=== PATIENT | male | born 1985 | race Caucasian/White ===

== ENCOUNTER 2021-09-20 04:50 | Emergency (ER) | payer SELFPAY ==
[~2021-09-20] VITALS: Ht 190 cm; Wt 97.0 kg
[2021-09-20 05:01] VITALS: BP 179/104
--- NOTE | 2021-09-20 05:20 | ED Integumentary General ---
General Chief Complaint: Skin/Wound Problems Stated Complaint: LEFT LEG INJURY Nursing Triage Note: Pt reports he was attempting to go to the bathroom and fell onto his left BKA causing it to bleed. Pt had a procedure done 2020 and has a wound vac and noticed bleeding to area. Pt reports he "did a line" and drank ETOH tonight. Denies LOC or other injury. Pt appears to be anxious but is cooperative at this time. Source: patient Exam Limitations: no limitations History of Present Illness Date Seen by Provider: Sep 20, 2021 Time Seen by Provider: 05:16 Initial Comments Patient fell 2 hours prior to arrival injuring his left below the knee stump with minimal bleeding present under wound VAC region. Patient scared to reconnect wound VAC. Patient also drinking alcohol and doing cocaine earlier this evening. Timing/Duration: just prior to arrival Severity: mild Location: extremities Possible Cause: other Modifying Factors: improves with other Associated Symptoms: other Allergies and Home Medications Patient Home Medication List Home Medication List Reviewed: Yes Review of Systems Review of Systems Constitutional: see HPI Past Wffwxop-Tppfzo-Orsyrm Hx Patient Social History Tobacco Use?: Yes Tobacco type used: Cigarettes Smoking Status: Current Everyday Smoker Use of E-Cig and/or Vaping dev: No Substance use?: Yes Substance type: Other Additional substance use comme: Cocaine Substance frequency: Several times a month Alcohol Use?: Yes Pt feels they are or have been: No Immunizations Up To Date Influenza Vaccine Up-to-Date: No; Not Current First/Initial COVID19 Vaccinat: denies Physical Exam Vital Signs Vital Signs - First Documented 09/20/21 05:01 Temp 36.7 Pulse 143 Resp 18 B/P (MAP) 179/104 (129) Pulse Ox 98 O2 Delivery Room Air Capillary Refill : Less Than 3 Seconds General Appearance: other (Anxious) Extremities: other (Minimal blood noted under wound VAC site. No deformity of DKA) Neurologic/Psychiatric: no motor/sensory deficits, alert Progress/Results/Core Measures Results/Orders Vital Signs/I&O 09/20/21 05:01 Temp 36.7 Pulse 143 Resp 18 B/P (MAP) 179/104 (129) Pulse Ox 98 O2 Delivery Room Air Blood Pressure Mean: 129 Departure Communication (Admissions) Patient instructed not to reconnect wound VAC until he can follow-up with his wound care nurse on Wednesday. Impression Primary Impression: Extremity amputee Additional Impression: Abrasion Disposition: HOME, SELF-CARE Condition: Stable Departure-Patient Inst. Decision time for Depature: 05:20 Referrals: NO,LOCAL PHYSICIAN (PCP/Family) Primary Care Physician Patient Instructions: Skin Abrasions (DC) Add. Discharge Instructions: Do not reconnect wound VAC until you follow-up with your wound care team on Wednesday. Avoid alcohol and drug use. All discharge instructions reviewed with patient and/or family. Voiced understanding. KAILEY DAVILA DO Sep 20, 2021 05:20
== END 2021-09-20 05:30 | disposition home or self-care (01) ==
LOC: ER FS 05:05
DX: Z89.432 Acquired absence of left foot (principal); F17.210 Nicotine dependence, cigarettes, uncomplicated
CPT/HCPCS: 99281

== ENCOUNTER 2021-10-31 17:31 | Emergency (ER) | payer SELFPAY ==
[~2021-10-31] VITALS: Ht 188 cm; Wt 86.2 kg
[2021-10-31 17:45] VITALS: BP 133/84
[2021-10-31] MEDS ORDERED: DOXYCYCLINE 100 MG (VIBRAMYCIN) TABLET PO SCH (19:00)
--- NOTE | 2021-10-31 19:08 | ED Lower Extremity ---
General Chief Complaint: Post OP Complications/Pain Stated Complaint: LEG PAIN Nursing Triage Note: PT TO ROOM FT02 WITH C/O LEFT LEG PAIN. PT IS A LEFT BTK AMPUTEE. PT REPORTS HAVING A REVISION X37 DAYS AGO DONE ON THE AMPUTATION AND HAS BEEN UNABLE TO GET A FOLLOW UP APPT BECAUSE OF INSURANCE. Source: patient Exam Limitations: no limitations (SAUL US APRN) History of Present Illness Date Seen by Provider: Oct 31, 2021 Time Seen by Provider: 19:02 Initial Comments To ER by private vehicle with reports of left lower extremity stump infection c oncerns. He had a left lower extremity amputation in [place] 6 years ago. He had a revision at [facility] 37 days ago. He denies any fevers or chills. The sutures remain in place and there is some redness around the incision. Onset: this evening Severity: moderate Pain/Injury Location: left leg Method of Injury: unknown Modifying Factors: Worse With Movement (SAUL US APRN) Allergies and Home Medications Allergies Coded Allergies: No Known Drug Allergies (Unverified , 10/31/21) Patient Home Medication List Home Medication List Reviewed: Yes (SAUL US APRN) Doxycycline Hyclate (Doxycycline Hyclate) 100 Mg Tablet, 100 MG PO BID Prescribed by: SAUL US on 10/31/211935 Hydrocodone/Acetaminophen (Hydrocodone-Acetamin 5-325 mg) 1 Each Tablet, 1 TAB PO Q4H PRN for PAIN-MODERATE (5-7) Prescribed by: SAUL US on 10/31/211936 Review of Systems Constitutional: see HPI EENTM: see HPI Respiratory: no symptoms reported Cardiovascular: no symptoms reported Genitourinary: no symptoms reported Musculoskeletal: see HPI Skin: no symptoms reported Psychiatric/Neurological: No Symptoms Reported (SAUL US APRN) Past Dticghl-Vjocgw-Zhhgjm Hx Patient Social History Tobacco Use?: Yes Tobacco type used: Cigarettes Smoking Status: Current Everyday Smoker Smokeless Tobacco Frequency: Never a User Use of E-Cig and/or Vaping dev: No Use of E-Cig and/or Vaping Larry: Never a User Substance use?: Yes Substance type: Marijuana Alcohol Use?: No Alcohol Frequency: Daily Pt feels they are or have been: No (SAUL US APRN) Immunizations Up To Date First/Initial COVID19 Vaccinat: denies (SAUL US APRN) Physical Exam Vital Signs Vital Signs - First Documented 10/31/21 17:45 Temp 36.2 Pulse 87 Resp 18 B/P (MAP) 133/84 (100) O2 Delivery Room Air (TIARA GROVER MD) Vital Signs Capillary Refill : Less Than 3 Seconds (SAUL US APRN) Height, Weight, BMI Height: '" Weight: lbs. oz. kg; 24.00 BMI Method: General Appearance: WD/WN, no apparent distress HEENT: PERRL/EOMI, normal ENT inspection Neck: non-tender, full range of motion Respiratory: no respiratory distress, no accessory muscle use Hips: bilateral hip non-tender, bilateral hip normal inspection, bilateral hip normal range of motion Legs: bilateral leg non-tender, bilateral leg normal inspection, bilateral leg normal range of motion; left leg other (Low the knee stump has some incisional redness without drainage. The inferior aspect of the stump does not have erythema there is no cellulitis. We will remove his sutures since it has been 37 days per his report and based on clinical exam it would be consistent as the incision has mostly healed except for 1 small area.) Knees: bilateral knee non-tender, bilateral knee normal inspection, bilateral knee normal range of motion Ankles: right ankle non-tender, right ankle normal inspection, right ankle normal range of motion Feet: right foot non-tender, right foot normal inspection, right foot normal range of motion Neurologic/Psychiatric: alert, normal mood/affect, oriented x 3 Skin: normal color, warm/dry (SAUL US APRN) Progress/Results/Core Measures Results/Orders Lab Results Laboratory Tests Test 10/31/21 19:18 Range/Units White Blood Count 11.0 4.3-11.0 10^3/uL Red Blood Count 5.25 4.30-5.52 10^6/uL Hemoglobin 15.6 13.3-17.7 g/dL Hematocrit 47 40-54 % Mean Corpuscular Volume 89 80-99 fL Mean Corpuscular Hemoglobin 30 25-34 pg Mean Corpuscular Hemoglobin Concent 34 32-36 g/dL Red Cell Distribution Width 12.6 10.0-14.5 % Platelet Count 315 130-400 10^3/uL Mean Platelet Volume 10.0 9.0-12.2 fL Immature Granulocyte % (Auto) 0 % Neutrophils (%) (Auto) 73 42-75 % Lymphocytes (%) (Auto) 16 12-44 % Monocytes (%) (Auto) 7 0-12 % Eosinophils (%) (Auto) 2 0-10 % Basophils (%) (Auto) 1 0-10 % Neutrophils # (Auto) 8.1 H 1.8-7.8 10^3/uL Lymphocytes # (Auto) 1.8 1.0-4.0 10^3/uL Monocytes # (Auto) 0.8 0.0-1.0 10^3/uL Eosinophils # (Auto) 0.2 0.0-0.3 10^3/uL Basophils # (Auto) 0.1 0.0-0.1 10^3/uL Immature Granulocyte # (Auto) 0.0 0.0-0.1 10^3/uL Erythrocyte Sedimentation Rate 11 0-15 MM/HR Sodium Level 139 135-145 MMOL/L Potassium Level 4.1 3.6-5.0 MMOL/L Chloride Level 105 98-107 MMOL/L Carbon Dioxide Level 22 21-32 MMOL/L Anion Gap 12 5-14 MMOL/L Blood Urea Nitrogen 9 7-18 MG/DL Creatinine 0.83 0.60-1.30 MG/DL Estimat Glomerular Filtration Rate 117 BUN/Creatinine Ratio 11 Glucose Level 114 H 70-105 MG/DL Calcium Level 9.4 8.5-10.1 MG/DL (TIARA GROVER MD) Vital Signs/I&O 10/31/21 17:45 Temp 36.2 Pulse 87 Resp 18 B/P (MAP) 133/84 (100) O2 Delivery Room Air (TIARA GROVER MD) Blood Pressure Mean: 100 Departure Communication (Admissions) 1933-incision was cleaned with Betadine, sutures were removed, area was scrubbed with chlorhexidine/saline solution. Culture was collected from an area of a small amount of wound dehiscence. This was then covered with antibiotic oin tment gauze and Coban. (SAUL US APRN) Impression Primary Impression: Soft tissue infection Additional Impressions: Encounter for wound care Extremity amputee Disposition: 01 HOME, SELF-CARE Condition: Stable Departure-Patient Inst. Decision time for Depature: :34 (SAUL US APRN) Referrals: NO,LOCAL PHYSICIAN (PCP/Family) Primary Care Physician Patient Instructions: Wound Care (DC) Add. Discharge Instructions: 1. Change dressing daily for about a week or so. Take the antibiotics and pain medication as directed. You can shower starting tomorrow. Do not put any weight or stress on this stump for another few weeks. Scripts Hydrocodone/Acetaminophen (Hydrocodone-Acetamin 5-325 mg) 1 Each Tablet 1 TAB PO Q4H PRN for PAIN-MODERATE (5-7), #10 TAB Prov: SAUL US APRN 10/31/21 Doxycycline Hyclate (Doxycycline Hyclate) 100 Mg Tablet 100 MG PO BID, #14 TAB 0 Refills Prov: SAUL US APRN 10/31/21 ATTENDING PHYSICIAN NOTE: I was physically present as attending physician in the emergency department during the care of this patient, but I was not directly involved in the decision making or delivery of care for this patient. (TIARA GROVER MD) SAUL US APRN Oct 31, 2021 19:08 TIARA GROVER MD Nov 01, 2021 08:21
[2021-10-31 19:25] LABS: BASOPHILS # (AUTO) 0.1 10^3/uL (0.0-0.1); BASOPHILS % (AUTO) 1 % (0-10); EOSINOPHILS # (AUTO) 0.2 10^3/uL (0.0-0.3); EOSINOPHILS % (AUTO) 2 % (0-10); HEMATOCRIT 47 % (40-54); HEMOGLOBIN 15.6 g/dL (13.3-17.7); LYMPHOCYTES # (AUTO) 1.8 10^3/uL (1.0-4.0); LYMPHOCYTES % (AUTO) 16 % (12-44); MEAN CORPUSCULAR HEMOGLOBIN 30 pg (25-34); MEAN CORPUSCULAR HGB CONC 34 g/dL (32-36); MEAN CORPUSCULAR VOLUME 89 fL (80-99); MONOCYTES # (AUTO) 0.8 10^3/uL (0.0-1.0); MONOCYTES % (AUTO) 7 % (0-12); NEUTROPHILS # (AUTO) 8.1 10^3/uL (1.8-7.8); NEUTROPHILS % (AUTO) 73 % (42-75); PLATELET COUNT 315 10^3/uL (130-400)
[2021-10-31] MEDS ORDERED: DOXY100T2 PO (19:36)
[2021-10-31] MEDS ORDERED: ACHD5005 PO (19:36)
[2021-10-31 19:45] LABS: CALCIUM 9.4 MG/DL (8.5-10.1); CREATININE SERUM 0.83 MG/DL (0.60-1.30); POTASSIUM 4.1 MMOL/L (3.6-5.0)
[2021-10-31 20:34] LABS: ERYTHROCYTE SEDIMENTATION RATE 11 MM/HR (0-15)
== END 2021-10-31 19:55 | disposition home or self-care (01) ==
LOC: EDUNIT# 17:31 → ER 17:34
DX: M79.89 Other specified soft tissue disorders (principal); F17.210 Nicotine dependence, cigarettes, uncomplicated; Z48.00 Encounter for change or removal of nonsurgical wound dressing; Z89.512 Acquired absence of left leg below knee
CPT/HCPCS: 36415; 80048; 85025; 85652; 87070; 87077; 87186; 87205

== ENCOUNTER 2022-01-28 00:37 | Emergency (ER) | payer SELFPAY ==
[~2022-01-28] VITALS: Ht 190.5 cm; Wt 90.0 kg
[~2022-01-28 00:37] MED LIST: ACHD5005 PO; DOXY100T2 PO
[2022-01-28] MEDS ORDERED: ORPHENADRINE 60 MG/2 ML (NORFLEX) AMP (ED ONLY) IM STA (00:55)
[2022-01-28] MEDS ORDERED: KETOROLAC 60 MG/2 ML VIAL IM STA (00:55)
--- NOTE | 2022-01-28 01:03 | ED Psychosocial ---
General Chief Complaint: Psych/Social Disorder Stated Complaint: BACK PAIN Source: patient (ARCHANA ABRAHAM MD) History of Present Illness Date Seen by Provider: January 28, 2022 Time Seen by Provider: 00:39 Initial Comments 36-year-old male presenting with complaints of low back pain radiating to both hips and legs. He states this is been present for 2 days since he fell out of his wheelchair. He denies hitting anything with his back. He does have a history of methamphetamine abuse and alcohol abuse. He states that he has been 2 days since he last used any drugs or alcohol. He has not taken anything for his back pain. He denies losing any control of his bowel or bladder. He has an amputation of the left lower extremity from just below his knee. He states that the initial amputation was done in 2016 in [place]. He had a revision done earlier this year at [facility]. He reports that he is waiting for the clinic to help find him a rehab facility to detox from alcohol and methamphetamines. After telling him that we will check his back out and get him something for pain he became tearful again and said he was scared to go home. When asked why he was scared to go home he said it was because he was planning to kill himself by going on a fishing trip and drown himself in the water. He states he has tried to drown himself previously but denies admit to psychiatric facility in the past Severity: severe Associated Symptoms: anxiety, suicidal ideation (ARCHANA ABRAHAM MD) Allergies and Home Medications Allergies Coded Allergies: mirtazapine (Verified Adverse Reaction, Mild, Nightmares, 01/28/22) Patient Home Medication List Home Medication List Reviewed: Yes (ARCHANA ABRAHAM MD) Doxycycline Hyclate (Doxycycline Hyclate) 100 Mg Tablet, 100 MG PO BID Prescribed by: SAUL US on 10/31/211935 Hydrocodone/Acetaminophen (Hydrocodone-Acetamin 5-325 mg) 1 Each Tablet, 1 TAB PO Q4H PRN for PAIN-MODERATE (5-7) Prescribed by: SAUL US on 10/31/211936 Review of Systems Constitutional: No chills, No fever EENTM: no symptoms reported Respiratory: no symptoms reported Cardiovascular: no symptoms reported Gastrointestinal: no symptoms reported Genitourinary: no symptoms reported Musculoskeletal: see HPI, back pain Skin: no symptoms reported Psychiatric/Neurological: Anxiety, Depressed, Emotional Problems (States he feels suicidal and plans to go fishing by himself and drown himself) (ARCHANA ABRAHAM MD) Past Gikjkyl-Grguve-Otiqpt Hx Patient Social History Tobacco Use?: Yes Tobacco type used: Cigarettes Smoking Status: Current Everyday Smoker Substance use?: Yes Substance type: Methamphetamine Alcohol Use?: Yes (ARCHANA ABRAHAM MD) Immunizations Up To Date First/Initial COVID19 Vaccinat: denies (ARCHANA ABRAHAM MD) Past Medical History Surgery/Hospitalization HX: Left below the knee amputation in [place] 2015, revision [address] [facility], Polysubstance abuse, Methamphetamine Abuse, Alcohol abuse, Suicidal Ideation (ARCHANA ABRAHAM MD) Surgeries: Yes Amputation (Left BKA), Gallbladder Respiratory: No Cardiac: Yes Hypertension Neurological: No Genitourinary: No Gastrointestinal: No Musculoskeletal: Yes (Osteomyelitis of left leg requiring amputation) Amputee Endocrine: No HEENT: No Cancer: No Psychosocial: Yes Anxiety, Bipolar, Depression (TIARA HILTON MD) Physical Exam Vital Signs - First Documented 01/28/22 00:38 Temp 36.8 Pulse 87 Resp 17 B/P (MAP) 153/97 (115) Pulse Ox 98 O2 Delivery Room Air (TIARA HILTON MD) Capillary Refill : (ARCHANA ABRAHAM MD) Height, Weight, BMI Height: '" Weight: lbs. oz. kg; 24.00 BMI Method: General Appearance: mild distress (tearful at times) HEENT: PERRL/EOMI, pharynx normal Neck: non-tender, full range of motion, supple, normal inspection Respiratory: chest non-tender, lungs clear, normal breath sounds, no respiratory distress, no accessory muscle use Cardiovascular: normal peripheral pulses, regular rate, rhythm Gastrointestinal: normal bowel sounds, non tender, soft, no pulsatile mass Extremities: normal range of motion, non-tender, no calf tenderness, normal capillary refill Neurologic/Psychiatric: ballistics expert II-XII nml as tested, alert, oriented x 3, other (anxious and tearful) Appearance/Memory: disheveled Behavior/Eye Contact: cooperative, avoids eye contact, increased rate of speech Thoughts/Hallucinations: no apparent hallucination, other (suicidal thoughts of drowning himself) Skin: normal color, warm/dry (ARCHANA ABRAHAM MD) Progress/Results/Core Measures Results/Orders Lab Results Laboratory Tests Test 01/28/22 00:42 01/28/22 01:15 01/28/22 01:30 Range/Units Urine Color YELLOW Urine Clarity CLEAR Urine pH 7.0 5-9 [address] Specific [place] 1.010 L 1.016-1.022 Urine Protein NEGATIVE NEGATIVE Urine Glucose (UA) NEGATIVE NEGATIVE Urine Ketones NEGATIVE NEGATIVE Urine Nitrite NEGATIVE NEGATIVE Urine Bilirubin NEGATIVE NEGATIVE Urine Urobilinogen 0.2 < = 1.0 MG/DL Urine Leukocyte Esterase NEGATIVE NEGATIVE Urine RBC (Auto) NEGATIVE NEGATIVE Urine RBC RARE /HPF Urine WBC 0-2 /HPF Urine Squamous Epithelial Cells RARE /HPF Urine Renal Epithelial Cells RARE /HPF Urine Crystals NONE /LPF Urine Bacteria NEGATIVE /HPF Urine Casts NONE /LPF Urine Mucus NEGATIVE /LPF Urine Culture Indicated NO Urine Opiates Screen NEGATIVE NEGATIVE Urine Oxycodone Screen NEGATIVE NEGATIVE Urine Methadone Screen NEGATIVE NEGATIVE Urine Propoxyphene Screen NEGATIVE NEGATIVE Urine Barbiturates Screen NEGATIVE NEGATIVE Ur Tricyclic Antidepressants Screen NEGATIVE NEGATIVE Urine Phencyclidine Screen NEGATIVE NEGATIVE Urine Amphetamines Screen POSITIVE H NEGATIVE Urine Methamphetamines Screen POSITIVE H NEGATIVE Urine Benzodiazepines Screen NEGATIVE NEGATIVE Urine Cocaine Screen NEGATIVE NEGATIVE Urine Cannabinoids Screen NEGATIVE NEGATIVE White Blood Count 8.1 4.3-11.0 10^3/uL Red Blood Count 5.49 4.30-5.52 10^6/uL Hemoglobin 15.8 13.3-17.7 g/dL Hematocrit 47 40-54 % Mean Corpuscular Volume 86 80-99 fL Mean Corpuscular Hemoglobin 29 25-34 pg Mean Corpuscular Hemoglobin Concent 34 32-36 g/dL Red Cell Distribution Width 12.8 10.0-14.5 % Platelet Count 260 130-400 10^3/uL Mean Platelet Volume 10.7 9.0-12.2 fL Immature Granulocyte % (Auto) 1 % Neutrophils (%) (Auto) 54 42-75 % Lymphocytes (%) (Auto) 26 12-44 % Monocytes (%) (Auto) 12 0-12 % Eosinophils (%) (Auto) 7 0-10 % Basophils (%) (Auto) 1 0-10 % Neutrophils # (Auto) 4.4 1.8-7.8 10^3/uL Lymphocytes # (Auto) 2.1 1.0-4.0 10^3/uL Monocytes # (Auto) 1.0 0.0-1.0 10^3/uL Eosinophils # (Auto) 0.6 H 0.0-0.3 10^3/uL Basophils # (Auto) 0.1 0.0-0.1 10^3/uL Immature Granulocyte # (Auto) 0.0 0.0-0.1 10^3/uL Sodium Level 139 135-145 MMOL/L Potassium Level 4.3 3.6-5.0 MMOL/L Chloride Level 102 98-107 MMOL/L Carbon Dioxide Level 24 21-32 MMOL/L Anion Gap 13 5-14 MMOL/L Blood Urea Nitrogen 13 7-18 MG/DL Creatinine 0.83 0.60-1.30 MG/DL Estimat Glomerular Filtration Rate 117 BUN/Creatinine Ratio 16 Glucose Level 108 H 70-105 MG/DL Calcium Level 9.0 8.5-10.1 MG/DL Corrected Calcium 8.8 8.5-10.1 MG/DL Total Bilirubin 0.2 0.1-1.0 MG/DL Aspartate Amino Transf (AST/SGOT) 130 H 5-34 U/L Alanine Aminotransferase (ALT/SGPT) 233 H 0-55 U/L Alkaline Phosphatase 218 H 40-136 U/L Total Protein 7.2 6.4-8.2 GM/DL Albumin 4.2 3.2-4.5 GM/DL Salicylates Level < 0.3 L 5.0-20.0 MG/DL Acetaminophen Level < 10 L 10-30 UG/ML Serum Alcohol < 10 <10 MG/DL SARS-CoV-2 RNA (RT-PCR) Not Detected Not Detecte (TIARA HILTON MD) My Orders Orders - TIARA HILTON MD Ibuprofen Tablet (Motrin Tablet) (01/28/22 12:00) (TIARA HILTON MD) Vital Signs/I&O 01/28/22 11:46 Temp 36.7 Pulse 75 Resp 14 B/P (MAP) 120/70 Pulse Ox 99 O2 Delivery Room Air (TIARA HILTON MD) Progress Progress Note #1: Progress Note Advised patient of the plan that he would be medically evaluated and screened here with an evaluation of his back and trying blood work as well as urine to look for any medical indication for his pain. Provided he is medically stable and clear will contact [facility] about a mental health screening. For pain order dose of Toradol 60 mg IM and Norflex 60 mg IM. Progress Note #2: Time: 01:48 Progress Note Labs are stable without acute significant abnormality on his CBC. His chemistry was showing mild elevation of his liver function tests. His urine drug screen was positive for methamphetamines and amphetamines. His alcohol level, sa licylate level, acetaminophen level were all Zero. His UA was clear. CT scan of Lspine shows no acute fracture per [employer] reading. He is medically clear and stable for mental health evaluation. Progress Note #3: Time: 03:38 Progress Note Patient completed mental health screen with staff from [facility] and they deemed he met criteria for inpatient psychiatric placement. Once we have the Covid Swab result back will fax that to them and they will work on finding inpatient psychiatric placement. Progress Note #4: Time: 06:27 Progress Note Covid swab did come back as Not Detected and this was faxed to [facility]. Pt remains calm and cooperative in room. Awaiting inpatient psychiatric placement. Will pass care to Dr. Hilton at 0700 with dayshift pending inpatient psychiatric placement. (ARCHANA ABRAHAM MD) Progress Note #1: Time: 11:04 Progress Note I discussed the case with Dr. Quiñones, receiving physician at the [facility] unit. He wanted some clarification on a few questions. In response to those questions the patient confirmed that he is independent with his ADLs. He can ambulate with crutches, drive a vehicle, transfer to bed and chair, go fishing, etc. Past medical history was updated with cholecystectomy, hyperte nsion, and bipolar disorder. Patient states his amputation was performed due to osteomyelitis and he has not had any new complications with it since infection was treated in October. He does have chronic pain and numbness unchanged since that time. I contacted the patient's clinic with his permission to review the medical history. He did have labs performed December 31, 2021. Hepatitis screening for hepatitis A, B, and C were all negative. Transaminases were normal at that time with AST 21, ALT 42, and alk phos 131. He does not endorse any acute symptoms that would be attributable to hepatitis such as vomiting, abdominal pain, fevers, chills, diarrhea, etc. Patient was examined and found to have a well-healed stump on the left leg with no evidence of active infection. Heart sounds were regular rate and rhythm without murmur. Lungs were clear to auscultation bilaterally. Abdomen was soft and nontender. Patient has a depressed and tearful demeanor but is calm and cooperative. He confirms that he is desiring help and is agreeing to psychiatric admission voluntarily. He does not feel coerced into this decision. I have communicated this update to [facility] transfer pumper and am awaiting response. Progress Note #2: Time: 11:53 Progress Note [facility] called back requesting an affidavit had be completed and notarized. We do not have notary available at this facility. In the meantime, [facility] called back and accepted the patient for immediate transfer. Patient is therefore being transferred to [facility] instead. He has requested something for his back pain. Ibuprofen has been ordered. (TIARA HILTON MD) Initial ECG Impression Date: January 28, 2022 Initial ECG Impression Time: 01:11 Initial ECG Rate: 74 Initial ECG Rhythm: Normal Sinus Initial ECG Comparisson: No Previous ECG Available Comment Normal sinus rhythm with a heart rate of 74 bpm. WI interval [address] elevation. QT interval 344 ms with a QTc interval 372 ms. There is no prior tracing available for comparison. (ARCHANA ABRAHAM MD) Diagnostic Imaging Diagonstic Imaging: CT Plain Films/CT/US/NM/MRI: pelvis ( and lumbar spine) Comments No acute fracture on the CT scan of the lumbar spine per radiologist Dr. Kendall lam read at 0141 and faxed at [phone] scan read by radiologist Dr. Casandra Izaguirre MD at 0146 and faxed at [phone] Reviewed: Reviewed [place] Study, Reviewed by Me (ARCHANA ABRAHAM MD) Departure Impression Primary Impression: Depression with suicidal ideation Additional Impressions: Polysubstance abuse Low back pain Qualified Codes: M54.42 - Lumbago with sciatica, left side; M54.41 - Lumbago with sciatica, right side Elevated transaminase level Disposition: 30 STILL A PATIENT Condition: Stable Transfer Transfer Reason: Exceeds level of care Time Spoke to Accepting Phy: 11:50 Transfer Progress Notes Transfer accepted via transfer pumper Transfer Time: 13:04 Transfer Facility: [facility] Method of Transfer: [facility] [place] (TIARA HILTON MD) Departure-Patient Inst. Referrals: NO,LOCAL PHYSICIAN (PCP/Family) Primary Care Physician ATTENDING PHYSICIAN NOTE: I was physically present as attending physician in the emergency department during the care of this patient, but I was not directly involved in the decision making or delivery of care for this patient. (TIARA HILTON MD) ARCHANA ABRAHAM MD January 28, 2022 01:03 TIARA HILTON MD January 28, 2022 07:26
[2022-01-28 01:27] LABS: BASOPHILS # (AUTO) 0.1 10^3/uL (0.0-0.1); BASOPHILS % (AUTO) 1 % (0-10); EOSINOPHILS # (AUTO) 0.6 10^3/uL (0.0-0.3); EOSINOPHILS % (AUTO) 7 % (0-10); HEMATOCRIT 47 % (40-54); HEMOGLOBIN 15.8 g/dL (13.3-17.7); LYMPHOCYTES # (AUTO) 2.1 10^3/uL (1.0-4.0); LYMPHOCYTES % (AUTO) 26 % (12-44); MEAN CORPUSCULAR HEMOGLOBIN 29 pg (25-34); MEAN CORPUSCULAR HGB CONC 34 g/dL (32-36); MEAN CORPUSCULAR VOLUME 86 fL (80-99); MEAN PLATELET VOLUME 10.7 fL (9.0-12.2); MONOCYTES % (AUTO) 12 % (0-12); NEUTROPHILS # (AUTO) 4.4 10^3/uL (1.8-7.8); NEUTROPHILS % (AUTO) 54 % (42-75); PLATELET COUNT 260 10^3/uL (130-400); WHITE BLOOD COUNT 8.1 10^3/uL (4.3-11.0)
[2022-01-28 01:32] LABS: BILIRUBIN,URINE NEGATIVE (NEGATIVE); CLARITY,URINE CLEAR; COLOR,URINE YELLOW; GLUCOSE, URINE (UA) NEGATIVE (NEGATIVE); KETONES,URINE NEGATIVE (NEGATIVE); LEUKOCYTE ESTERASE ,URINE NEGATIVE (NEGATIVE); NITRITE,URINE NEGATIVE (NEGATIVE); PROTEIN,URINE NEGATIVE (NEGATIVE)
[2022-01-28 01:52] LABS: BACTERIA,URINE NEGATIVE /HPF; RBC,URINE RARE /HPF; SQUAMOUS EPITHELIAL CELL,UR RARE /HPF; WBC,URINE 0-2 /HPF
[2022-01-28 01:53] LABS: RENAL EPITHELIAL CELLS,URINE RARE /HPF
[2022-01-28 01:54] LABS: AMPHETAMINE SCREEN, URINE POSITIVE (NEGATIVE); BARBITURATE SCREEN URINE NEGATIVE (NEGATIVE); BENZODIAZEPINES SCREEN URINE NEGATIVE (NEGATIVE); CANNABINOID SCREEN, URINE NEGATIVE (NEGATIVE); COCAINE SCREEN URINE NEGATIVE (NEGATIVE); METHADONE STAT NEGATIVE (NEGATIVE); OPIATE SCREEN URINE NEGATIVE (NEGATIVE); OXYCODONE STAT NEGATIVE (NEGATIVE); PROPOXYPHENE STAT NEGATIVE (NEGATIVE); TRICYCLIC ANTIDEPRESSANTS SCRE NEGATIVE (NEGATIVE)
[2022-01-28 01:56] LABS: BUN/CREATININE RATIO 16; CARBON DIOXIDE 24 MMOL/L (21-32); CHLORIDE 102 MMOL/L (98-107); CREATININE SERUM 0.83 MG/DL (0.60-1.30); GFR ESTIMATED 117; POTASSIUM 4.3 MMOL/L (3.6-5.0); SODIUM 139 MMOL/L (135-145)
[2022-01-28 01:57] LABS: ACETAMINOPHEN < 10 UG/ML (10-30); ALANINE AMINOTRANSFERASE 233 U/L (0-55); ALBUMIN 4.2 GM/DL (3.2-4.5); ALKALINE PHOSPHATASE 218 U/L (40-136); BILIRUBIN,TOTAL 0.2 MG/DL (0.1-1.0); GLUCOSE 108 MG/DL (70-105); SALICYLATE < 0.3 MG/DL (5.0-20.0); TOTAL PROTEIN 7.2 GM/DL (6.4-8.2)
[2022-01-28] MEDS ORDERED: HYDROcodone/APAP 5 MG/325 MG (LORTAB) TAB PO STA (02:42)
[2022-01-28] MEDS ORDERED: LORazepam 0.5 MG (ATIVAN) TABLET PO STA (02:42)
--- NOTE | 2022-01-28 07:23 | Diagnostic Imaging Report ---
PROCEDURE: CT pelvis without contrast. TECHNIQUE: Multiple contiguous axial images were obtained through the pelvis without the use of intravenous contrast. Sagittal and coronal reformations were performed. Auto Exposure Controls were utilized during the CT exam to meet ALARA standards for radiation dose reduction. INDICATION: Fall from wheelchair. Back pain radiating into hips. FINDINGS: Bony pelvis is intact. SI joints are symmetrical. Pubic symphysis in good alignment. No pelvic fractures are seen. Femoral heads show normal articulation with the acetabulum. Surfaces are smooth. Surrounding muscles appear normal. There is no free fluid in the peritoneal space. Bladder is nondistended. Bowel gas pattern appears normal in the pelvis. No findings are seen that would indicate appendicitis. The appendix is visualized. There is no free air or free fluid. IMPRESSION: 1. No bony abnormalities. 2. No acute intra-abdominal findings. Appendix was visualized. These findings are concordant with the preliminary report. Dictated by: Dictated on workstation # [id number]
--- NOTE | 2022-01-28 07:26 | Diagnostic Imaging Report ---
PROCEDURE: CT lumbar spine without contrast. TECHNIQUE: Multiple contiguous axial images were obtained through the lumbar spine without the use of intravenous contrast. Sagittal and coronal reformations were then performed. Auto Exposure Controls were utilized during the CT exam to meet ALARA standards for radiation dose reduction. Date: 2021. Indication: 36-year-old male, low back pain extending to both lower extremities after fall. Comparison: None available. Findings: The alignment of the lumbar spine is grossly unremarkable. There is transitional lumbosacral anatomy. 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 L5 is labeled as partially sacralized. There is a hypoplastic disc space at the level of L5-S1. If spinal intervention is to be performed in the future, recommend careful correlation with levels. There are mature ossifications posteriorly at the level of L2-L3 which are not completely bridged to adjacent bone with articulations with the facet joints at this level. 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 There is no identified acute fracture of the lumbar spine. There is no pronounced lumbar disc height loss. CT is limited for assessment of disc pathology as well as additional non-bony causes of pathology in the spinal canal. There does appear to be a diffuse disc bulge eccentric to the left at L5-S1 with mild narrowing of the left lateral recess and moderate to severe left foraminal narrowing. There is also a diffuse disc bulge present at L4-L5 without CT apparent high-grade foraminal or spinal stenosis. Impression: 1. Transitional lumbosacral anatomy and congenital anomalies as above. 2. No identified acute fracture of the lumbar spine. 3. Diffuse disc bulges at L4-L5 and L5-S1 with mild narrowing of the left lateral recess at L5-S1 and moderate to severe left foraminal narrowing at L5-S1. Dictated by: Dictated on workstation # [id number]
[2022-01-28 11:46] VITALS: BP 120/70
[2022-01-28] MEDS ORDERED: IBUPROFEN TABLET 200 MG TAB PO ONE (12:00)
== END 2022-01-28 13:10 | disposition still patient (30) ==
LOC: EDUNIT# 00:37 → EDBD 00:40 → ER FS 00:40
DX: M54.41 Lumbago with sciatica, right side (principal); M54.42 Lumbago with sciatica, left side; F32.A Depression, unspecified; R45.851 Suicidal ideations; R74.01 Elevation of levels of liver transaminase levels; F17.210 Nicotine dependence, cigarettes, uncomplicated; Z20.822 Contact with and (suspected) exposure to COVID-19; W05.0XXA Fall from non-moving wheelchair, initial encounter
CPT/HCPCS: 36415; 72131; 72192; 80053; 80306; 81000; 85025; 87636; 93005; 99283; G0480 ×3; 80320; 80329

== ENCOUNTER 2022-02-07 14:59 | Emergency (ER) | payer SELFPAY ==
[~2022-02-07] VITALS: Ht 190.5 cm; Wt 81.6 kg
[2022-02-07 15:25] LABS: BASOPHILS # (AUTO) 0.1 10^3/uL (0.0-0.1); BASOPHILS % (AUTO) 1 % (0-10); EOSINOPHILS # (AUTO) 0.4 10^3/uL (0.0-0.3); EOSINOPHILS % (AUTO) 4 % (0-10); HEMATOCRIT 44 % (40-54); HEMOGLOBIN 14.6 g/dL (13.3-17.7); LYMPHOCYTES # (AUTO) 1.6 10^3/uL (1.0-4.0); LYMPHOCYTES % (AUTO) 16 % (12-44); MEAN CORPUSCULAR HEMOGLOBIN 29 pg (25-34); MEAN CORPUSCULAR HGB CONC 33 g/dL (32-36); MEAN CORPUSCULAR VOLUME 88 fL (80-99); MEAN PLATELET VOLUME 10.4 fL (9.0-12.2); MONOCYTES # (AUTO) 1.1 10^3/uL (0.0-1.0); MONOCYTES % (AUTO) 11 % (0-12); NEUTROPHILS # (AUTO) 7.2 10^3/uL (1.8-7.8); NEUTROPHILS % (AUTO) 69 % (42-75); PLATELET COUNT 248 10^3/uL (130-400); WHITE BLOOD COUNT 10.4 10^3/uL (4.3-11.0)
--- NOTE | 2022-02-07 15:29 | ED General ---
General Chief Complaint: Psych/Social Disorder Stated Complaint: SUICIDAL IDEATION Nursing Triage Note: Patient brought to the ED by [facility] for chief complaint of fall with back pain and suicidal ideation. Source of Information: Patient Exam Limitations: No Limitations History of Present Illness Date Seen by Provider: February 07, 2022 Time Seen by Provider: 15:05 Initial Comments Patient is a 36-year-old male with history methamphetamine abuse who presents with complaints of fall from standing with low back pain and suicidal ideation. Patient made several statements of wishing to harm or kill himself to his family member. He does have a history of left BKA and fell prior to ED arrival. He complains of diffuse low back pain on exam, there is no bruising midline point tenderness or swelling. He is anxious with inconsolable crying. He does not wish to answer questions. He does not make specific statements of how he wishes to kill himself. There are no reports of HI, hallucinations paranoia or delusions. There are no reports of recent alcohol or drug use. History is limited based upon the patient's condition. Timing/Duration: 1-3 Hours Severity: Moderate Modifying Factors: improves with Other Associated Systoms: Other Allergies and Home Medications Allergies Coded Allergies: mirtazapine (Verified Adverse Reaction, Mild, Nightmares, 01/28/22) Patient Home Medication List Home Medication List Reviewed: Yes Doxycycline Hyclate (Doxycycline Hyclate) 100 Mg Tablet, 100 MG PO BID Prescribed by: SAUL US on 10/31/211935 Hydrocodone/Acetaminophen (Hydrocodone-Acetamin 5-325 mg) 1 Each Tablet, 1 TAB PO Q4H PRN for PAIN-MODERATE (5-7) Prescribed by: SAUL US on 10/31/211936 Review of Systems Review of Systems Constitutional: see HPI EENTM: see HPI Respiratory: see HPI Cardiovascular: see HPI Gastrointestinal: see HPI Genitourinary: see HPI Musculoskeletal: see HPI Skin: see HPI Psychiatric/Neurological: See HPI Hematologic/Lymphatic: See HPI Immunological/Allergic: see HPI All Other Systems Reviewed Negative Unless Noted: Yes Past Wuoydcd-Ftyorl-Ueksng Hx Patient Social History Tobacco Use?: Yes Smoking Status: Current Everyday Smoker Substance use?: Yes Substance type: Amphetamines Additional substance use comme: States he has not used since before going into rehab Alcohol Use?: Yes Pt feels they are or have been: No Immunizations Up To Date First/Initial COVID19 Vaccinat: denies Past Medical History Surgery/Hospitalization HX: Left below the knee amputation in [place] 2015, revision 2021 at [facility], Polysubstance abuse, Methamphetamine Abuse, Alcohol abuse, Suicidal Ideation Surgeries: Yes Amputation, Gallbladder Respiratory: No Cardiac: Yes Hypertension Neurological: No Genitourinary: No Gastrointestinal: No Musculoskeletal: Yes (Osteomyelitis of left leg requiring amputation) Amputee Endocrine: No HEENT: No Cancer: No Psychosocial: Yes Anxiety, Bipolar, Depression Physical Exam Vital Signs Vital Signs - First Documented 02/07/22 15:00 Temp 36.1 Pulse 89 Resp 16 B/P (MAP) 135/71 (92) Pulse Ox 96 O2 Delivery Room Air Capillary Refill : Less Than 3 Seconds Height, Weight, BMI Height: '" Weight: lbs. oz. kg; 22.00 BMI Method: General Appearance: Anxious, Mild Distress Eyes: Bilateral Eye Normal Inspection HEENT: PERRL/EOMI, TMs Normal Neck: Full Range of Motion, Normal Inspection Respiratory: Lungs Clear, Normal Breath Sounds Cardiovascular: Regular Rate, Rhythm Gastrointestinal: Non Tender, Soft Neurologic/Psychiatric: Alert, No Motor/Sensory Deficits, Normal Mood/Affect, rehabilitation coordinator II-XII Norm as Tested Skin: Normal Color, Warm/Dry Focused Exam Sepsis Stage: Ruled Out Progress/Results/Core Measures Suspected Sepsis SIRS Temperature: Pulse: 89 Respiratory Rate: 16 Laboratory Tests 02/07/22 15:20: White Blood Count 10.4 Blood Pressure 135 /71 Mean: 92 Laboratory Tests 02/07/22 15:20: Creatinine 0.72, Platelet Count 248, Total Bilirubin 0.3 Results/Orders Lab Results Laboratory Tests Test 02/07/22 15:11 02/07/22 15:20 02/07/22 15:35 Range/Units Urine Opiates Screen NEGATIVE NEGATIVE Urine Oxycodone Screen NEGATIVE NEGATIVE Urine Methadone Screen NEGATIVE NEGATIVE Urine Propoxyphene Screen NEGATIVE NEGATIVE Urine Barbiturates Screen NEGATIVE NEGATIVE Ur Tricyclic Antidepressants Screen NEGATIVE NEGATIVE Urine Phencyclidine Screen NEGATIVE NEGATIVE Urine Amphetamines Screen POSITIVE H NEGATIVE Urine Methamphetamines Screen POSITIVE H NEGATIVE Urine Benzodiazepines Screen NEGATIVE NEGATIVE Urine Cocaine Screen NEGATIVE NEGATIVE Urine Cannabinoids Screen POSITIVE H NEGATIVE White Blood Count 10.4 4.3-11.0 10^3/uL Red Blood Count 5.07 4.30-5.52 10^6/uL Hemoglobin 14.6 13.3-17.7 g/dL Hematocrit 44 40-54 % Mean Corpuscular Volume 88 80-99 fL Mean Corpuscular Hemoglobin 29 25-34 pg Mean Corpuscular Hemoglobin Concent 33 32-36 g/dL Red Cell Distribution Width 13.6 10.0-14.5 % Platelet Count 248 130-400 10^3/uL Mean Platelet Volume 10.4 9.0-12.2 fL Immature Granulocyte % (Auto) 0 % Neutrophils (%) (Auto) 69 42-75 % Lymphocytes (%) (Auto) 16 12-44 % Monocytes (%) (Auto) 11 0-12 % Eosinophils (%) (Auto) 4 0-10 % Basophils (%) (Auto) 1 0-10 % Neutrophils # (Auto) 7.2 1.8-7.8 10^3/uL Lymphocytes # (Auto) 1.6 1.0-4.0 10^3/uL Monocytes # (Auto) 1.1 H 0.0-1.0 10^3/uL Eosinophils # (Auto) 0.4 H 0.0-0.3 10^3/uL Basophils # (Auto) 0.1 0.0-0.1 10^3/uL Immature Granulocyte # (Auto) 0.0 0.0-0.1 10^3/uL Sodium Level 140 135-145 MMOL/L Potassium Level 4.9 3.6-5.0 MMOL/L Chloride Level 107 98-107 MMOL/L Carbon Dioxide Level 23 21-32 MMOL/L Anion Gap 10 5-14 MMOL/L Blood Urea Nitrogen 21 H 7-18 MG/DL Creatinine 0.72 0.60-1.30 MG/DL Estimat Glomerular Filtration Rate 122 BUN/Creatinine Ratio 29 Glucose Level 106 H 70-105 MG/DL Calcium Level 9.5 8.5-10.1 MG/DL Corrected Calcium 9.3 8.5-10.1 MG/DL Total Bilirubin 0.3 0.1-1.0 MG/DL Aspartate Amino Transf (AST/SGOT) 23 5-34 U/L Alanine Aminotransferase (ALT/SGPT) 144 H 0-55 U/L Alkaline Phosphatase 192 H 40-136 U/L Total Protein 7.2 6.4-8.2 GM/DL Albumin 4.3 3.2-4.5 GM/DL Serum Alcohol < 10 <10 MG/DL SARS-CoV-2 RNA (RT-PCR) Not Detected Not Detecte My Orders Orders - KAILEY DAVILA DO Cbc With Automated Diff (02/07/22 15:08) Comprehensive Metabolic Panel (02/07/22 15:08) Ekg Tracing (02/07/22 15:08) Drug Screen Stat (Urine) (02/07/22 15:08) Alcohol (02/07/22 15:08) Covid 19 Inhouse Test (02/07/22 15:32) Isolation Central Supply Req (02/07/22 15:32) Tramadol Tablet (Ultram Tablet) (02/07/22 15:45) Cyclobenzaprine Tablet (Flexeril Tablet) (02/07/22 15:45) Lumbar Spine 2 Or 3 View (02/07/22 15:35) Covid 19 Inhouse Test (02/07/22 15:35) Medications Given in ED Current Medications Medications Dose Ordered Sig/Viridiana Route Start Time Stop Time Status Last Admin Dose Admin Tramadol HCl 100 mg ONCE ONCE PO 02/07/22 15:45 02/07/22 15:46 DC 02/07/22 15:44 100 MG Vital Signs/I&O 02/07/22 15:00 Temp 36.1 Pulse 89 Resp 16 B/P (MAP) 135/71 (92) Pulse Ox 96 O2 Delivery Room Air Capillary Refill : Less Than 3 Seconds Blood Pressure Mean: 92 Departure Communication (Admissions) Anxiety state, mood disorder in the setting of methamphetamine abuse and low back pain. X-ray is nondiagnostic. Pain addressed improved. Mental illness screening exam performed remotely. Recommendations are discharged home with safety plan. Patient no longer voices thoughts of self-harm. Attempts will be made to contact the patient's family member for transportation home and follow- up with outpatient mental health services and rehab. Return precautions reviewed. Impression Primary Impression: Mood disorder Additional Impression: Low back pain Disposition: 01 HOME, SELF-CARE Condition: Stable Departure-Patient Inst. Decision time for Depature: 18:25 Referrals: NO,LOCAL PHYSICIAN (PCP/Family) Primary Care Physician Patient Instructions: Anxiety, Adult (DC), Low Back Pain (DC), Methamphetamine Add. Discharge Instructions: You were evaluated in the ED for evaluation or back pain, drug use and anxiety state. Please take Tylenol for pain and follow up with your mental health counsellor and PCP. Return to the ED if new or worsening symptoms. All discharge instructions reviewed with patient and/or family. Voiced understanding. KAILEY DAVILA DO February 07, 2022 15:29
[2022-02-07 15:32] LABS: AMPHETAMINE SCREEN, URINE POSITIVE (NEGATIVE); BARBITURATE SCREEN URINE NEGATIVE (NEGATIVE); BENZODIAZEPINES SCREEN URINE NEGATIVE (NEGATIVE); CANNABINOID SCREEN, URINE POSITIVE (NEGATIVE); COCAINE SCREEN URINE NEGATIVE (NEGATIVE); METHADONE STAT NEGATIVE (NEGATIVE); OPIATE SCREEN URINE NEGATIVE (NEGATIVE); OXYCODONE STAT NEGATIVE (NEGATIVE); PROPOXYPHENE STAT NEGATIVE (NEGATIVE); TRICYCLIC ANTIDEPRESSANTS SCRE NEGATIVE (NEGATIVE)
[2022-02-07] MEDS ORDERED: CYCLOBENZAPRINE 10 MG (FLEXERIL) TAB PO SCH (15:45)
[2022-02-07 15:47] LABS: ALANINE AMINOTRANSFERASE 144 U/L (0-55); ALBUMIN 4.3 GM/DL (3.2-4.5); ALKALINE PHOSPHATASE 192 U/L (40-136); BILIRUBIN,TOTAL 0.3 MG/DL (0.1-1.0); BUN/CREATININE RATIO 29; CALCIUM 9.5 MG/DL (8.5-10.1); CARBON DIOXIDE 23 MMOL/L (21-32); CHLORIDE 107 MMOL/L (98-107); CREATININE SERUM 0.72 MG/DL (0.60-1.30); GFR ESTIMATED 122; GLUCOSE 106 MG/DL (70-105); POTASSIUM 4.9 MMOL/L (3.6-5.0); SODIUM 140 MMOL/L (135-145); TOTAL PROTEIN 7.2 GM/DL (6.4-8.2)
--- NOTE | 2022-02-07 16:06 | Diagnostic Imaging Report ---
CLINICAL INDICATION: Patient with low back pain. EXAM: X-ray of the lumbar spine, lateral views only. COMPARISON: CT scan of the lumbar spine without contrast dated 01/28/2022. FINDINGS: Again seen is transitional lumbosacral vertebra. There is no interval acute lumbar spine fracture or dislocation. There is stable appearance of the facet morphology at the L2-L3 level. Intervertebral disk heights are maintained. There is no interval pars defect. IMPRESSION: Stable appearance of the lumbar spine with no acute fracture or dislocation. Dictated by: Dictated on workstation # [id number]
[2022-02-07] MEDS ORDERED: IBUPROFEN 600 MG (MOTRIN) TAB PO ONE (19:00)
[2022-02-07] MEDS ORDERED: RX-ONDANSETRON 4 MG ODT (ZOFRAN) PPK #4 PO STA ×2 (19:58→19:59)
[2022-02-07 20:25] VITALS: BP 140/85
== END 2022-02-07 20:25 | disposition home or self-care (01) ==
LOC: EDUNIT# 14:59 → ER FS 15:00
DX: F15.14 Other stimulant abuse with stimulant-induced mood disorder (principal); F41.1 Generalized anxiety disorder; M54.50 Low back pain, unspecified; F17.200 Nicotine dependence, unspecified, uncomplicated; Z20.822 Contact with and (suspected) exposure to COVID-19; W18.30XA Fall on same level, unspecified, initial encounter
CPT/HCPCS: 36415; 72100; 80053; 80306; 85025; 87636; 99283; G0480; 80320

== ENCOUNTER 2022-02-11 16:11 | Emergency (ER) | payer SELFPAY ==
[~2022-02-11] VITALS: Ht 187 cm; Wt 86.0 kg
[2022-02-11 16:15] VITALS: BP 127/90
[2022-02-11 16:51] LABS: BASOPHILS # (AUTO) 0.1 10^3/uL (0.0-0.1); BASOPHILS % (AUTO) 1 % (0-10); EOSINOPHILS # (AUTO) 0.4 10^3/uL (0.0-0.3); EOSINOPHILS % (AUTO) 4 % (0-10); HEMATOCRIT 47 % (40-54); HEMOGLOBIN 15.7 g/dL (13.3-17.7); LYMPHOCYTES # (AUTO) 1.9 10^3/uL (1.0-4.0); LYMPHOCYTES % (AUTO) 20 % (12-44); MEAN CORPUSCULAR HEMOGLOBIN 29 pg (25-34); MEAN CORPUSCULAR HGB CONC 33 g/dL (32-36); MEAN CORPUSCULAR VOLUME 87 fL (80-99); MEAN PLATELET VOLUME 10.8 fL (9.0-12.2); MONOCYTES # (AUTO) 0.7 10^3/uL (0.0-1.0); MONOCYTES % (AUTO) 8 % (0-12); NEUTROPHILS # (AUTO) 6.3 10^3/uL (1.8-7.8); NEUTROPHILS % (AUTO) 67 % (42-75); PLATELET COUNT 248 10^3/uL (130-400); WHITE BLOOD COUNT 9.4 10^3/uL (4.3-11.0)
[2022-02-11 17:08] LABS: AMPHETAMINE SCREEN, URINE NEGATIVE (NEGATIVE); BENZODIAZEPINES SCREEN URINE NEGATIVE (NEGATIVE); CANNABINOID SCREEN, URINE POSITIVE (NEGATIVE); COCAINE SCREEN URINE NEGATIVE (NEGATIVE)
[2022-02-11 17:09] LABS: BARBITURATE SCREEN URINE NEGATIVE (NEGATIVE); METHADONE STAT NEGATIVE (NEGATIVE); OPIATE SCREEN URINE NEGATIVE (NEGATIVE); OXYCODONE STAT NEGATIVE (NEGATIVE); PROPOXYPHENE STAT NEGATIVE (NEGATIVE); TRICYCLIC ANTIDEPRESSANTS SCRE NEGATIVE (NEGATIVE)
[2022-02-11 17:15] LABS: POTASSIUM 4.2 MMOL/L (3.6-5.0); SODIUM 138 MMOL/L (135-145)
[2022-02-11 17:16] LABS: ALANINE AMINOTRANSFERASE 104 U/L (0-55); ALBUMIN 4.5 GM/DL (3.2-4.5); ALKALINE PHOSPHATASE 166 U/L (40-136); BILIRUBIN,TOTAL 0.4 MG/DL (0.1-1.0); BUN/CREATININE RATIO 16; CALCIUM 9.6 MG/DL (8.5-10.1); CARBON DIOXIDE 25 MMOL/L (21-32); CHLORIDE 102 MMOL/L (98-107); CREATININE SERUM 0.81 MG/DL (0.60-1.30); GFR ESTIMATED 118; GLUCOSE 166 MG/DL (70-105); TOTAL PROTEIN 7.8 GM/DL (6.4-8.2)
[2022-02-11] MEDS ORDERED: BUPR300T98 PO (18:52)
[2022-02-11] MEDS ORDERED: GABA300S2 PO (18:52)
[2022-02-11] MEDS ORDERED: HYDR50TA76 PO (18:52)
[2022-02-11] MEDS ORDERED: TRAZ-227 PO (18:52)
--- NOTE | 2022-02-11 19:58 | ED Psychosocial ---
General Chief Complaint: Suicidal Ideation Risk Stated Complaint: PSYCH EVAL Nursing Triage Note: pt. seen at clinic today stating "I want to kill myself". pt. reports wanting to suffocate self per staff. Pt. sent here for eval. pt. calm and cooperative and agreeable w/ this plan. Source: patient Exam Limitations: no limitations History of Present Illness Date Seen by Provider: Feb 11, 2022 Time Seen by Provider: 16:30 Initial Comments Patient is a 36-year-old male who presents with suicidal ideation. Patient was at [facility] for evaluation when he stated he wanted to kill himself and plan to suffocate himself. Patient calm and cooperative on ED arrival. He denies attempt. Patient was seen in the emergency department 3 days ago for mood disorder and polysubstance abuse. Timing/Duration: getting worse Severity: moderate Associated Symptoms: suicidal ideation, other Allergies and Home Medications Allergies Coded Allergies: mirtazapine (Verified Adverse Reaction, Mild, Nightmares, 01/28/22) Patient Home Medication List Home Medication List Reviewed: Yes Bupropion HCl (Bupropion Xl) 300 Mg Tab.er.24h, 300 MG PO DAILY, (Reported) Entered as Reported by: Mark Uribe on 02/11/221851 Last Action: New Order Gabapentin (Gabapentin) 300 Mg/6 Ml (6 Ml) Solution, 300 MG PO TID, (Reported) Entered as Reported by: Mark Uribe on 02/11/221851 Last Action: New Order Hydroxyzine HCl (Hydroxyzine HCl) 50 Mg Tablet, 50 MG PO QID PRN for ANXIETY, (Reported) Entered as Reported by: Mark Uribe on 02/11/221851 Last Action: New Order Trazodone HCl (Trazodone HCl) 100 Mg Tablet, 100 MG PO qhs, (Reported) Entered as Reported by: Mark Uribe on 02/11/221851 Last Action: New Order Discontinued Medications Doxycycline Hyclate (Doxycycline Hyclate) 100 Mg Tablet, 100 MG PO BID Discontinued Reason: No Longer Taking Prescribed by: SAUL US on 10/31/211935 Last Action: Discontinued Hydrocodone/Acetaminophen (Hydrocodone-Acetamin 5-325 mg) 1 Each Tablet, 1 TAB PO Q4H PRN for PAIN-MODERATE (5-7) Discontinued Reason: No Longer Taking Prescribed by: SAUL US on 10/31/211936 Last Action: Discontinued Review of Systems Constitutional: see HPI EENTM: see HPI Respiratory: see HPI Gastrointestinal: see HPI Genitourinary: see HPI Musculoskeletal: see HPI Skin: see HPI Psychiatric/Neurological: See HPI All Other Systems Reviewed Negative Unless Noted: Yes Past Xysvfaq-Bcdzfn-Hvtctr Hx Patient Social History Tobacco Use?: Yes Tobacco type used: Cigarettes Smoking Status: Current Everyday Smoker Substance type: Other Additional substance use comme: denies Alcohol Use?: No Alcohol type: Other Immunizations Up To Date First/Initial COVID19 Vaccinat: denies Past Medical History Surgery/Hospitalization HX: Left below the knee amputation in [place] 2015, revision 2021 at [facility], Polysubstance abuse, Methamphetamine Abuse, Alcohol abuse, Suicidal Ideation Surgeries: Yes Amputation, Gallbladder Respiratory: No Cardiac: Yes Hypertension Neurological: No Genitourinary: No Gastrointestinal: No Musculoskeletal: Yes (Osteomyelitis of left leg requiring amputation) Amputee Endocrine: No HEENT: No Cancer: No Psychosocial: Yes Anxiety, Bipolar, Depression Physical Exam Vital Signs - First Documented 02/11/22 16:15 Temp 36.4 Pulse 100 Resp 20 B/P (MAP) 127/90 (102) Pulse Ox 98 Capillary Refill : Height, Weight, BMI Height: '" Weight: lbs. oz. kg; 24.00 BMI Method: General Appearance: WD/WN, no apparent distress Respiratory: lungs clear Cardiovascular: regular rate, rhythm Gastrointestinal: non tender, soft Neurologic/Psychiatric: alert, oriented x 3 Behavior/Eye Contact: good eye contact, normal speech Thoughts/Hallucinations: no apparent hallucination, other (SI) Progress/Results/Core Measures Results/Orders Lab Results Laboratory Tests Test 02/11/22 16:15 02/11/22 16:20 02/11/22 16:24 Range/Units White Blood Count 9.4 4.3-11.0 10^3/uL Red Blood Count 5.42 4.30-5.52 10^6/uL Hemoglobin 15.7 13.3-17.7 g/dL Hematocrit 47 40-54 % Mean Corpuscular Volume 87 80-99 fL Mean Corpuscular Hemoglobin 29 25-34 pg Mean Corpuscular Hemoglobin Concent 33 32-36 g/dL Red Cell Distribution Width 13.2 10.0-14.5 % Platelet Count 248 130-400 10^3/uL Mean Platelet Volume 10.8 9.0-12.2 fL Immature Granulocyte % (Auto) 1 % Neutrophils (%) (Auto) 67 42-75 % Lymphocytes (%) (Auto) 20 12-44 % Monocytes (%) (Auto) 8 0-12 % Eosinophils (%) (Auto) 4 0-10 % Basophils (%) (Auto) 1 0-10 % Neutrophils # (Auto) 6.3 1.8-7.8 10^3/uL Lymphocytes # (Auto) 1.9 1.0-4.0 10^3/uL Monocytes # (Auto) 0.7 0.0-1.0 10^3/uL Eosinophils # (Auto) 0.4 H 0.0-0.3 10^3/uL Basophils # (Auto) 0.1 0.0-0.1 10^3/uL Immature Granulocyte # (Auto) 0.1 0.0-0.1 10^3/uL Sodium Level 138 135-145 MMOL/L Potassium Level 4.2 3.6-5.0 MMOL/L Chloride Level 102 98-107 MMOL/L Carbon Dioxide Level 25 21-32 MMOL/L Anion Gap 11 5-14 MMOL/L Blood Urea Nitrogen 13 7-18 MG/DL Creatinine 0.81 0.60-1.30 MG/DL Estimat Glomerular Filtration Rate 118 BUN/Creatinine Ratio 16 Glucose Level 166 H 70-105 MG/DL Calcium Level 9.6 8.5-10.1 MG/DL Corrected Calcium 9.2 8.5-10.1 MG/DL Total Bilirubin 0.4 0.1-1.0 MG/DL Aspartate Amino Transf (AST/SGOT) 40 H 5-34 U/L Alanine Aminotransferase (ALT/SGPT) 104 H 0-55 U/L Alkaline Phosphatase 166 H 40-136 U/L Total Protein 7.8 6.4-8.2 GM/DL Albumin 4.5 3.2-4.5 GM/DL Serum Alcohol < 10 <10 MG/DL Urine Opiates Screen NEGATIVE NEGATIVE Urine Oxycodone Screen NEGATIVE NEGATIVE Urine Methadone Screen NEGATIVE NEGATIVE Urine Propoxyphene Screen NEGATIVE NEGATIVE Urine Barbiturates Screen NEGATIVE NEGATIVE Ur Tricyclic Antidepressants Screen NEGATIVE NEGATIVE Urine Phencyclidine Screen NEGATIVE NEGATIVE Urine Amphetamines Screen NEGATIVE NEGATIVE Urine Methamphetamines Screen NEGATIVE NEGATIVE Urine Benzodiazepines Screen NEGATIVE NEGATIVE Urine Cocaine Screen NEGATIVE NEGATIVE Urine Cannabinoids Screen POSITIVE H NEGATIVE Influenza Type A Antigen NEGATIVE NEGATIVE Influenza Type B Antigen NEGATIVE NEGATIVE SARS-CoV-2 RNA (RT-PCR) Not Detected Not Detecte My Orders Orders - KAILEY DAVILA DO Cbc With Automated Diff (02/11/22 16:37) Comprehensive Metabolic Panel (02/11/22 16:37) Drug Screen Stat (Urine) (02/11/22 16:37) Alcohol (02/11/22 16:37) Covid 19 Inhouse Test (02/11/22 16:37) Isolation Central Supply Req (02/11/22 16:37) Ekg Tracing (02/11/22 16:42) Influenza A & B Antigens (02/11/22 17:04) Vital Signs/I&O 02/11/22 16:15 Temp 36.4 Pulse 100 Resp 20 B/P (MAP) 127/90 (102) Pulse Ox 98 Blood Pressure Mean: 102 Departure Communication (Admissions) Patient medically stable. Awaiting mental health screen exam. Patient evaluated states he is no longer suicidal. Home safety plan enacted. Return precautions reviewed. Impression Primary Impression: Mood disorder Disposition: HOME, SELF-CARE Condition: Improved Departure-Patient Inst. Referrals: NO,LOCAL PHYSICIAN (PCP/Family) Primary Care Physician Patient Instructions: OUTPT MENTAL HEALTH SERVICES Add. Discharge Instructions: Please follow home safety plan and follow-up with your community mental health counsellor. Return to the ED if new or concerning symptoms. All discharge instructions reviewed with patient and/or family. Voiced understanding. KAILEY DAVILA DO Feb 11, 2022 19:58
== END 2022-02-11 21:25 | disposition home or self-care (01) ==
LOC: EDUNIT# 16:11 → ER FS 16:12
DX: F39 Unspecified mood [affective] disorder (principal); Z20.822 Contact with and (suspected) exposure to COVID-19
CPT/HCPCS: 36415; 80053; 80306; 85025; 87636; 87804; 93005; 99283; G0480; 80320

== ENCOUNTER 2022-02-20 16:42 | Emergency (ER) | payer SELFPAY ==
[~2022-02-20] VITALS: Ht 190 cm; Wt 109.0 kg
[~2022-02-20 16:42] MED LIST changes: +BUPR300T98 PO; +GABA300S2 PO; +HYDR50TA76 PO; +TRAZ-227 PO
--- NOTE | 2022-02-20 17:06 | ED Psychosocial ---
General Stated Complaint: SUICIDAL IDEATION History of Present Illness Date Seen by Provider: Feb 20, 2022 Time Seen by Provider: 17:06 Initial Comments 36-year-old male presents with chronic suicidal ideation and chronic pain. Patient has chronic low back pain chronic pain in the left BKA. Patient reports that he is here because he feels he needs his medication adjusted but he does have thoughts of hurting himself. This is patient's third recent visit for similar symptoms. Patient reports that he went to establish primary care provider today when asked him if he had thoughts 1 to hurt himself any stated yes they sent him here for further evaluation. Patient reports he is 3 weeks clean from stopping meth. He does admit to some marijuana use daily. Patient denies plan at this time. Allergies and Home Medications Allergies Coded Allergies: mirtazapine (Verified Adverse Reaction, Mild, Nightmares, 01/28/22) Patient Home Medication List Home Medication List Reviewed: Yes Bupropion HCl (Bupropion Xl) 300 Mg Tab.er.24h, 300 MG PO DAILY, (Reported) Entered as Reported by: Mark Uribe on 02/11/221851 Gabapentin (Gabapentin) 300 Mg/6 Ml (6 Ml) Solution, 300 MG PO TID, (Reported) Entered as Reported by: Mark Uribe on 02/11/221851 Hydroxyzine HCl (Hydroxyzine HCl) 50 Mg Tablet, 50 MG PO QID PRN for ANXIETY, (Reported) Entered as Reported by: Mark Uribe on 02/11/221851 Trazodone HCl (Trazodone HCl) 100 Mg Tablet, 100 MG PO qhs, (Reported) Entered as Reported by: Mark Uribe on 02/11/221851 Review of Systems Constitutional: No chills, No fever EENTM: no symptoms reported Respiratory: no symptoms reported Cardiovascular: no symptoms reported Gastrointestinal: no symptoms reported Genitourinary: no symptoms reported Musculoskeletal: see HPI Skin: no symptoms reported Psychiatric/Neurological: See HPI Past Nsaxmdf-Zavbws-Nvvrck Hx Immunizations Up To Date First/Initial COVID19 Vaccinat: denies Past Medical History Surgery/Hospitalization HX: Left below the knee amputation in [place] 2015, revision 2021 at [facility], Polysubstance abuse, Methamphetamine Abuse, Alcohol abuse, Suicidal Ideation Surgeries: Yes Amputation, Gallbladder Respiratory: No Cardiac: Yes Hypertension Neurological: No Genitourinary: No Gastrointestinal: No Musculoskeletal: Yes (Osteomyelitis of left leg requiring amputation) Amputee Endocrine: No HEENT: No Cancer: No Psychosocial: Yes Anxiety, Bipolar, Depression Physical Exam Vital Signs - First Documented 02/20/22 17:31 Temp 36.0 Pulse 101 Resp 18 B/P (MAP) 152/93 (112) Pulse Ox 96 O2 Delivery Room Air Capillary Refill : Height, Weight, BMI Height: '" Weight: lbs. oz. kg; 24.00 BMI Method: General Appearance: WD/WN, no apparent distress Neck: full range of motion, supple Respiratory: lungs clear, normal breath sounds Cardiovascular: normal peripheral pulses, regular rate, rhythm Gastrointestinal: non tender, soft Extremities: other (Left BKA) Neurologic/Psychiatric: alert, normal mood/affect, oriented x 3 Behavior/Eye Contact: cooperative, good eye contact Thoughts/Hallucinations: no apparent hallucination, other (Suicidal ideation) Skin: other (Small abrasions left knee) Progress/Results/Core Measures Results/Orders My Orders Orders - MARILYNN PORTILLO DO Behavorial Health Consult (02/20/22 17:07) Olanzapine Orally Dissolve Tab (Zyprexa (02/20/22 21:45) Ketorolac Injection (Toradol Injection) (02/20/22 21:39) Vital Signs/I&O 02/20/22 17:31 Temp 36.0 Pulse 101 Resp 18 B/P (MAP) 152/93 (112) Pulse Ox 96 O2 Delivery Room Air Progress Progress Note : Progress Note Patient was evaluated by [facility] services. They are going to do a safety plan with him. They did ask if I could give him a shot like Toradol may be something to help with his anxiety for sleep tonight. I will give 30 IM Toradol and 5 mg of Zyprexa. He will be discharged per his conversation with behavioral health. I did have a conversation with patient regarding the use of topicals to help with his chronic pain. That he needs to follow-up with a primary care provider for his chronic pain management and anxiety. Patient stable and discharged home Departure Impression Primary Impression: Depression with suicidal ideation Additional Impression: Chronic pain Qualified Codes: G89.29 - Other chronic pain Disposition: HOME, SELF-CARE Condition: Stable Departure-Patient Inst. Referrals: NO,LOCAL PHYSICIAN (PCP/Family) Primary Care Physician Patient Instructions: Tips on Positive Thinking, Chronic Pain (DC), Depression, Adult (DC) Add. Discharge Instructions: 4% topical lidocaine with menthol to affected area use as directed on package You may use CBD if it helps with your pain Voltaren/diclofenac cream use as directed Please follow-up with your primary care provider for other options for your chronic pain MARILYNN PORTILLO DO Feb 20, 2022 17:06
[2022-02-20 17:31] VITALS: BP 152/93
[2022-02-20] MEDS ORDERED: KETOROLAC 30 MG/ML VIAL IM STA (21:39)
[2022-02-20] MEDS ORDERED: OLANZapine 5 MG ODT (ZyPREXA ZYDIS) PO ONE (21:45)
== END 2022-02-20 22:18 | disposition home or self-care (01) ==
LOC: EDUNIT# 16:42 → ER FS 16:44
DX: S80.212A Abrasion, left knee, initial encounter (principal); R45.851 Suicidal ideations; F31.9 Bipolar disorder, unspecified; F41.9 Anxiety disorder, unspecified; G89.29 Other chronic pain; M54.50 Low back pain, unspecified; Z89.512 Acquired absence of left leg below knee; X58.XXXA Exposure to other specified factors, initial encounter
CPT/HCPCS: 99284

== ENCOUNTER 2022-04-12 17:56 | Emergency (ER) | payer SELFPAY ==
[~2022-04-12] VITALS: Ht 190.5 cm; Wt 131.5 kg
[2022-04-12] MEDS ORDERED: FAMOTIDINE 20 MG (PEPCID) TABLET PO STA (18:11)
[2022-04-12] MEDS ORDERED: ANTACID SUSP 30 ML UDC (MYLANTA) PO ONE (18:15)
[2022-04-12] MEDS ORDERED: LIDOCAINE 2% VISCOUS 15 ML UDC PO ONE (18:15)
--- NOTE | 2022-04-12 18:20 | ED Chest Pain ---
General Stated Complaint: CP Source: patient, EMS Exam Limitations: no limitations History of Present Illness Date Seen by Provider: Apr 12, 2022 Time Seen by Provider: 18:00 Initial Comments Patient to the ER by EMS from [place] where he lives with chief complaint of chest pain since yesterday morning. It did not wake him up. Its been 7 or greater. Fairly persistent sharp stabbing pain in his left chest reproducible to direct palpation. He has no personal history of coronary disease however he does have a history of a father who had MIs and started his coronary disease in his late 30s. He last used methamphetamines 120 days ago. He does still smoke a pack or 2 a day. He does not drink alcohol and does use cannabis. He was on metoprolol for hypertension at some point but has been off that for a couple months because his primary care doctor did not feel he needed it anymore. He follows with [facility] for primary care. He denies a history of diabetes or hyperlipidemia. EMS gave him 325 mg tablet of aspirin to chew and swallow. He is not having any nausea shortness of air cough fever chills wheezing diarrhea or constipation. EMS remarks he did not have any EKG changes. He says he went to [facility] ER yesterday when this pain started but did not complete much of a work-up beyond an EKG and a chest x-ray because his roommate became belligerent and started throwing a fit so he left AMA. He has a history of GERD and was having some acid reflux yesterday. He took some toothpaste consistently had for it. 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 Patient was seen here couple months ago for chronic suicidal ideation and low back pain. At that time he was given Toradol, Zyprexa and set up with a safety plan and follow-up. 10 days prior to that he was here for suicidal ideation with plan to suffocate himself. He was sent home with a safety plan. Less than a week prior to that he was in the ER with complaint of a fall from standing, l ow back pain and suicidal ideation. At that time he was medically cleared and his thoughts of self-harm had gone away. A safety plan was established. About 10 days prior to that the patient was in with suicidal complaints and at that time was sent to [facility] for inpatient psychiatric management. The patient said that while it was helpful he does not want to go back to [facility] did not feel like it was a good place. He declined to go into any detail but did agree that he would be willing to go somewhere else if it were offered to him. Allergies and Home Medications Allergies Coded Allergies: mirtazapine (Verified Adverse Reaction, Mild, Nightmares, 01/28/22) Patient Home Medication List Home Medication List Reviewed: Yes Bupropion HCl (Bupropion Xl) 300 Mg Tab.er.24h, 300 MG PO DAILY, (Reported) Entered as Reported by: Mark Uribe on 02/11/221851 Gabapentin (Gabapentin) 300 Mg/6 Ml (6 Ml) Solution, 300 MG PO TID, (Reported) Entered as Reported by: Mark Uribe on 02/11/221851 Hydroxyzine HCl (Hydroxyzine HCl) 50 Mg Tablet, 50 MG PO QID PRN for ANXIETY, (Reported) Entered as Reported by: Mark Uribe on 02/11/221851 Trazodone HCl (Trazodone HCl) 100 Mg Tablet, 100 MG PO qhs, (Reported) Entered as Reported by: Mark Uribe on 02/11/221851 Review of Systems Review of Systems Constitutional: no symptoms reported EENTM: No Symptoms Reported Respiratory: No Symptoms Reported Cardiovascular: See HPI Gastrointestinal: See HPI Genitourinary: No Symptoms Reported Musculoskeletal: no symptoms reported Skin: no symptoms reported Psychiatric/Neurological: No Symptoms Reported All Other Systems Reviewed Negative Unless Noted: Yes Past Ugdhjst-Rduamp-Rqxzma Hx Patient Social History Tobacco Use?: Yes Use of E-Cig and/or Vaping dev: No Substance use?: Yes Substance type: Amphetamines, Methamphetamine (Last use 120 days ago, IV), Marijuana Alcohol Use?: No Immunizations Up To Date First/Initial COVID19 Vaccinat: denies Past Medical History Surgery/Hospitalization HX: Left below the knee amputation in [place] 2015, revision 2021 at [facility], Polysubstance abuse, Methamphetamine Abuse, Alcohol abuse, Suicidal Ideation Surgeries: Yes Amputation, Gallbladder Respiratory: No Cardiac: Yes Hypertension Neurological: No Genitourinary: No Gastrointestinal: No Musculoskeletal: Yes (Osteomyelitis of left leg requiring amputation) Amputee Endocrine: No HEENT: No Cancer: No Psychosocial: Yes Anxiety, Bipolar, Depression Physical Exam Vital Signs Vital Signs - First Documented 04/12/22 17:57 Temp 36.0 Pulse 90 Resp 17 B/P (MAP) 143/104 (117) O2 Delivery Room Air Capillary Refill : Height, Weight, BMI Height: '" Weight: lbs. oz. kg; 30.00 BMI Method: General Appearance: Anxious HEENT: PERRL/EOMI, Pharynx Normal, Moist Mucous Membranes Neck: Full Range of Motion, Normal Inspection, Non Tender Respiratory: No Chest Non Tender (Chest pain is reproducible to direct palpation over his left upper chest); Lungs Clear, Normal Breath Sounds, No Accessory Muscle Use, No Respiratory Distress Cardiovascular: Regular Rate, Rhythm, No Edema, Normal Peripheral Pulses Gastrointestinal: Normal Bowel Sounds, Non Tender, Soft Extremity: Normal Capillary Refill, Normal Inspection, No Pedal Edema Neurologic/Psychiatric: Alert, Oriented x3, No Motor/Sensory Deficits, Normal Mood/Affect Skin: Normal Color, Warm/Dry Progress/Results/Core Measures Results/Orders Lab Results Laboratory Tests Test 04/12/22 18:14 04/12/22 18:38 Range/Units White Blood Count 10.2 4.3-11.0 10^3/uL Red Blood Count 5.25 4.30-5.52 10^6/uL Hemoglobin 15.4 13.3-17.7 g/dL Hematocrit 45 40-54 % Mean Corpuscular Volume 85 80-99 fL Mean Corpuscular Hemoglobin 29 25-34 pg Mean Corpuscular Hemoglobin Concent 35 32-36 g/dL Red Cell Distribution Width 11.9 10.0-14.5 % Platelet Count 254 130-400 10^3/uL Mean Platelet Volume 10.2 9.0-12.2 fL Immature Granulocyte % (Auto) 0 % Neutrophils (%) (Auto) 70 42-75 % Lymphocytes (%) (Auto) 18 12-44 % Monocytes (%) (Auto) 8 0-12 % Eosinophils (%) (Auto) 3 0-10 % Basophils (%) (Auto) 1 0-10 % Neutrophils # (Auto) 7.1 1.8-7.8 10^3/uL Lymphocytes # (Auto) 1.9 1.0-4.0 10^3/uL Monocytes # (Auto) 0.9 0.0-1.0 10^3/uL Eosinophils # (Auto) 0.3 0.0-0.3 10^3/uL Basophils # (Auto) 0.1 0.0-0.1 10^3/uL Immature Granulocyte # (Auto) 0.0 0.0-0.1 10^3/uL Prothrombin Time 12.6 12.2-14.7 SEC INR Comment 0.9 0.8-1.4 Activated Partial Thromboplast Time 32 24-35 SEC Sodium Level 140 135-145 MMOL/L Potassium Level 4.3 3.6-5.0 MMOL/L Chloride Level 107 98-107 MMOL/L Carbon Dioxide Level 20 L 21-32 MMOL/L Anion Gap 13 5-14 MMOL/L Blood Urea Nitrogen 13 7-18 MG/DL Creatinine 0.84 0.60-1.30 MG/DL Estimat Glomerular Filtration Rate 117 BUN/Creatinine Ratio 15 Glucose Level 101 70-105 MG/DL Calcium Level 9.1 8.5-10.1 MG/DL Corrected Calcium 8.7 8.5-10.1 MG/DL Magnesium Level 1.9 1.6-2.4 MG/DL Total Bilirubin 0.7 0.1-1.0 MG/DL Aspartate Amino Transf (AST/SGOT) 22 5-34 U/L Alanine Aminotransferase (ALT/SGPT) 45 0-55 U/L Alkaline Phosphatase 115 40-136 U/L Total Creatine Kinase 73 30-200 U/L Myoglobin 32.5 10.0-92.0 NG/ML Troponin I < 0.028 <0.028 NG/ML Total Protein 7.7 6.4-8.2 GM/DL Albumin 4.5 3.2-4.5 GM/DL Lipase 22 8-78 U/L Salicylates Level < 5.0 L 5.0-20.0 MG/DL Acetaminophen Level < 10 L 10-30 UG/ML Serum Alcohol < 10 <10 MG/DL SARS-CoV-2 RNA (RT-PCR) Not Detected Not Detecte Urine Color YELLOW Urine Clarity CLEAR Urine pH 6.0 5-9 Urine Specific Heaters 1.020 1.016-1.022 Urine Protein NEGATIVE NEGATIVE Urine Glucose (UA) NEGATIVE NEGATIVE Urine Ketones NEGATIVE NEGATIVE Urine Nitrite NEGATIVE NEGATIVE Urine Bilirubin NEGATIVE NEGATIVE Urine Urobilinogen 0.2 < = 1.0 MG/DL Urine Leukocyte Esterase NEGATIVE NEGATIVE Urine RBC (Auto) NEGATIVE NEGATIVE Urine RBC NONE /HPF Urine WBC 2-5 /HPF Urine Squamous Epithelial Cells RARE /HPF Urine Crystals NONE /LPF Urine Bacteria TRACE /HPF Urine Casts NONE /LPF Urine Mucus MODERATE H /LPF Urine Culture Indicated NO Urine Opiates Screen NEGATIVE NEGATIVE Urine Oxycodone Screen NEGATIVE NEGATIVE Urine Methadone Screen NEGATIVE NEGATIVE Urine Propoxyphene Screen NEGATIVE NEGATIVE Urine Barbiturates Screen NEGATIVE NEGATIVE Ur Tricyclic Antidepressants Screen POSITIVE H NEGATIVE Urine Phencyclidine Screen NEGATIVE NEGATIVE Urine Amphetamines Screen NEGATIVE NEGATIVE Urine Methamphetamines Screen NEGATIVE NEGATIVE Urine Benzodiazepines Screen NEGATIVE NEGATIVE Urine Cocaine Screen NEGATIVE NEGATIVE Urine Cannabinoids Screen POSITIVE H NEGATIVE My Orders Orders - ANUJ QUINTERO Cbc With Automated Diff (04/12/22 18:11) Magnesium (04/12/22 18:11) Chest 1 View, Ap/Pa Only (04/12/22 18:11) Ekg Tracing (04/12/22 18:11) Comprehensive Metabolic Panel (04/12/22 18:11) Myoglobin Serum (04/12/22 18:11) Protime With Inr (04/12/22 18:11) Partial Thromboplastin Time (04/12/22 18:11) O2 (04/12/22 18:11) Monitor-Rhythm Ecg Trace Only (04/12/22 18:11) Lipid Panel (04/13/22 06:00) Ed Iv/Invasive Line Start (04/12/22 18:11) Lipase (04/12/22 18:11) Troponin I Crook (04/12/22 18:11) Ua Culture If Indicated (04/12/22 18:11) Alcohol (04/12/22 18:11) Drug Screen Stat (Urine) (04/12/22 18:11) Acetaminophen (04/12/22 18:11) Salicylate (04/12/22 18:11) Bh Status Checks/Observation Q15M (04/12/22 18:11) Creatine Kinase (04/12/22 18:11) Lidocaine 2% Viscous 15 Ml (Xylocaine Vi (04/12/22 18:15) Famotidine Tablet (Pepcid Tablet) (04/12/22 18:11) Antacid Suspension (Mylanta Suspension (04/12/22 18:15) Covid 19 Inhouse Test (04/12/22 18:20) Troponin I Vick (04/12/22 20:15) General/Regular (04/12/22 Dinner) Medications Given in ED Current Medications Medications Dose Ordered Sig/Viridiana Route Start Time Stop Time Status Last Admin Dose Admin Al Hydrox/Mg Hydrox/Simethicone 30 ml ONCE ONCE PO 04/12/22 18:15 04/12/22 18:16 DC 04/12/22 18:34 30 ML Lidocaine HCl 15 ml ONCE ONCE PO 04/12/22 18:15 04/12/22 18:16 DC 04/12/22 18:34 15 ML Vital Signs/I&O 04/12/22 17:57 Temp 36.0 Pulse 90 Resp 17 B/P (MAP) 143/104 (117) O2 Delivery Room Air Progress Progress Note #1: Time: : Progress Note Reproducible chest pain for 2 days. We will get some labs. He says the pain has been persistent the entire time. Should be able to easily medically clear him here in the ER with a single troponin but we will go ahead and get a delta troponin in 2 hours anyways. He would be voluntary to go inpatient. He does not feel like his medications that he takes are working for him. I think it may be appropriate for him to go in and get medication rearrangement as he has detoxed off of methamphetamines and his needs for medications appear to have acutely changed. His suicidal thoughts started yesterday and he says that the chest pain is part of his problems but not all of them. He does not give many other details and only becomes more tearful either refusing or having difficulty answering questions any further when pressed. We will start with a GI cocktail to see if this helps with him since he was having GERD yesterday. Progress Note #2: Time: 21:28 Progress Note The patient has been resting comfortably, reclining in his bed in the room. He was provided a meal and something to drink. His initial troponin is negative his delta troponin is running. He states that he is not suicidal nor has he been suicidal since he got here and he no longer wants to do inpatient hospitalization. 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 He has been off his meds for the past 4 days but has refills sitting up with pharmacy to be picked up tomorrow morning. He wants to go home with his dad who will watch him and follow-up on outpatient basis. He has done this multiple times in the past 6 months and has never even come up with as much is a plan let alone actually harm himself so feel that he would be safe to go home with his father as long as his dad is on board with this plan. We did make sure he has a copy of [facility] crisis line in his wallet as well as encouraged him to return to the ER if his symptoms worsen or he does not feel safe at home. Patient states that he is willing to participate in the safety plan. Initial ECG Impression Date: Apr 12, 2022 Initial ECG Impression Time: 18:17 Initial ECG Rate: 80 Initial ECG Rhythm: Normal Sinus Initial ECG Intervals: Normal Initial ECG Impression: Normal Initial ECG Comparisson: No Previous ECG Available Comment Normal sinus rhythm without clinically relevant ST changes. Diagnostic Imaging Diagonstic Imaging: Xray Plain Films/CT/US/NM/MRI: chest Reviewed: Reviewed by Me Departure Impression Primary Impression: Chest pain Qualified Codes: R07.9 - Chest pain, unspecified Additional Impression: Passive suicidal ideations Disposition: 01 HOME, SELF-CARE Condition: Stable Departure-Patient Inst. Referrals: GYPSY GONZALEZ (PCP/Family) Primary Care Physician Patient Instructions: Chest Pain, Depression, Adult ED, Suicide Prevention Add. Discharge Instructions: Drink plenty of fluids and get some rest tonight. 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 Call your primary care doctor, therapist and psychiatrist about getting follow- up appointment in the next couple weeks to review your medications and review your recent trips to the ER for suicidal ideation. Feel free to return to the ER promptly if you are having intractable suicidal thoughts. You may use crisis hotline by dialing [phone] from any phone. ANUJ QUINTERO Apr 12, 2022 18:20
[2022-04-12 18:28] LABS: BASOPHILS # (AUTO) 0.1 10^3/uL (0.0-0.1); BASOPHILS % (AUTO) 1 % (0-10); EOSINOPHILS # (AUTO) 0.3 10^3/uL (0.0-0.3); EOSINOPHILS % (AUTO) 3 % (0-10); HEMATOCRIT 45 % (40-54); HEMOGLOBIN 15.4 g/dL (13.3-17.7); LYMPHOCYTES # (AUTO) 1.9 10^3/uL (1.0-4.0); LYMPHOCYTES % (AUTO) 18 % (12-44); MEAN CORPUSCULAR HEMOGLOBIN 29 pg (25-34); MEAN CORPUSCULAR HGB CONC 35 g/dL (32-36); MEAN CORPUSCULAR VOLUME 85 fL (80-99); MEAN PLATELET VOLUME 10.2 fL (9.0-12.2); MONOCYTES # (AUTO) 0.9 10^3/uL (0.0-1.0); MONOCYTES % (AUTO) 8 % (0-12); NEUTROPHILS # (AUTO) 7.1 10^3/uL (1.8-7.8); NEUTROPHILS % (AUTO) 70 % (42-75); PLATELET COUNT 254 10^3/uL (130-400); WHITE BLOOD COUNT 10.2 10^3/uL (4.3-11.0)
[2022-04-12 18:39] LABS: INR 0.9 (0.8-1.4); PROTHROMBIN TIME PATIENT 12.6 SEC (12.2-14.7)
[2022-04-12 18:46] LABS: BILIRUBIN,URINE NEGATIVE (NEGATIVE); CLARITY,URINE CLEAR; COLOR,URINE YELLOW; GLUCOSE, URINE (UA) NEGATIVE (NEGATIVE); KETONES,URINE NEGATIVE (NEGATIVE); LEUKOCYTE ESTERASE ,URINE NEGATIVE (NEGATIVE); NITRITE,URINE NEGATIVE (NEGATIVE); PROTEIN,URINE NEGATIVE (NEGATIVE)
[2022-04-12 18:54] LABS: ALBUMIN 4.5 GM/DL (3.2-4.5); BILIRUBIN,TOTAL 0.7 MG/DL (0.1-1.0); CALCIUM 9.1 MG/DL (8.5-10.1); CREATININE SERUM 0.84 MG/DL (0.60-1.30); MAGNESIUM 1.9 MG/DL (1.6-2.4); POTASSIUM 4.3 MMOL/L (3.6-5.0); TOTAL PROTEIN 7.7 GM/DL (6.4-8.2)
[2022-04-12 18:55] LABS: BACTERIA,URINE TRACE /HPF; SQUAMOUS EPITHELIAL CELL,UR RARE /HPF
[2022-04-12 18:59] LABS: SALICYLATE < 5.0 MG/DL (5.0-20.0)
[2022-04-12 19:00] LABS: ACETAMINOPHEN < 10 UG/ML (10-30)
[2022-04-12 19:03] LABS: AMPHETAMINE SCREEN, URINE NEGATIVE (NEGATIVE); BARBITURATE SCREEN URINE NEGATIVE (NEGATIVE); BENZODIAZEPINES SCREEN URINE NEGATIVE (NEGATIVE); CANNABINOID SCREEN, URINE POSITIVE (NEGATIVE); COCAINE SCREEN URINE NEGATIVE (NEGATIVE); METHADONE STAT NEGATIVE (NEGATIVE); OPIATE SCREEN URINE NEGATIVE (NEGATIVE); OXYCODONE STAT NEGATIVE (NEGATIVE); PROPOXYPHENE STAT NEGATIVE (NEGATIVE); TRICYCLIC ANTIDEPRESSANTS SCRE POSITIVE (NEGATIVE)
[2022-04-12 19:13] LABS: CREATINE KINASE 73 U/L (30-200)
--- NOTE | 2022-04-12 19:33 | Diagnostic Imaging Report ---
INDICATION: Chest pain. COMPARISON: None available. FINDINGS: The lungs appear clear without focal airspace opacities or consolidation. There are no findings of an effusion. There is no evidence of a pneumothorax. Heart size and mediastinal contours appear appropriate. Pulmonary vascularity appears within normal limits. There is no acute or suspicious osseous abnormality demonstrated. IMPRESSION: No radiographic evidence of an acute cardiopulmonary process. Dictated by: Dictated on workstation # [id number]
[2022-04-12 22:27] VITALS: BP 126/91
== END 2022-04-12 23:40 | disposition home or self-care (01) ==
LOC: EDUNIT# 17:56 → ER 17:58
DX: R07.89 Other chest pain (principal); R45.851 Suicidal ideations; I10 Essential (primary) hypertension; F17.210 Nicotine dependence, cigarettes, uncomplicated; Z79.899 Other long term (current) drug therapy; Z87.19 Personal history of other diseases of the digestive system; Z20.822 Contact with and (suspected) exposure to COVID-19
CPT/HCPCS: 71045; 80053; 80306; 81000; 82550; 83690; 83735; 83874; 84484; 85025; 85610; 85730; 87636; 93005; 93041; 99284; G0480 ×3; 36415; 80320; 80329